=== PATIENT | female | born 1980 | race Caucasian/White ===

== ENCOUNTER 2017-01-23 14:10 | Emergency (ER) | payer SELFPAY ==
[~2017-01-23] VITALS: Ht 154.9 cm; Wt 59.0 kg
[2017-01-23 17:29] VITALS: BP 0/0
== END 2017-01-23 17:33 | disposition left against medical advice (07) ==
LOC: ER 15:44
DX: Z00.8 Encounter for other general examination (principal)
CPT/HCPCS: 99281

== ENCOUNTER 2017-03-20 17:37 | Emergency (ER) | payer MEDICAID ==
[~2017-03-20] VITALS: Ht 160 cm; Wt 58.0 kg
[2017-03-20] MEDS ORDERED: MAGNESIUM/ALUMINUM HYDROXIDE/SIMETHICONE 30ML UDC PO ONE (20:00)
[2017-03-20] MEDS ORDERED: FAMOTIDINE 20MG TABLET PO ONE (20:00)
[2017-03-20 20:15] LABS: BASOPHILS % 0.9 % (0.0-2.0); EOSINOPHILS % 0.8 % (0.0-5.0); HEMATOCRIT. 33.2 % (36.0-48.0); MEAN CORPUSCULAR HEMOGLOBIN 28.7 pg (28.0-32.0); MEAN CORPUSCULAR VOLUME 86.4 fL (81.0-99.0); MEAN PLATELET VOLUME 8.4 fl (7.4-10.4); MONOCYTES % 6.2 % (2.0-8.0); NEUTROPHILS % 74.1 % (40.0-76.0); PLATELET 239 x1000/uL (130-400); RED BLOOD CELL COUNT 3.85 mill/uL (4.2-5.4); RED CELL DISTRIBUTION WIDTH 14.6 % (11.6-14.6)
[2017-03-20 20:16] LABS: CHLORIDE 104 mEq/L (98-107)
[2017-03-20 20:18] LABS: PARTIAL THROMBOPLASTIN TIME 29.1 sec (24.0-34.0)
[2017-03-20 20:22] LABS: CARBON DIOXIDE 29 mEq/L (21-32)
[2017-03-20 20:27] LABS: TROPONIN I < 0.02 ng/mL (0.00-0.04)
[2017-03-20 20:28] VITALS: BP 134/87
[2017-03-20 20:31] LABS: HCG SCREEN NEGATIVE
== END 2017-03-20 21:47 | disposition home or self-care (01) ==
LOC: ER 18:02
DX: K29.20 Alcoholic gastritis without bleeding (principal); R07.89 Other chest pain; F17.200 Nicotine dependence, unspecified, uncomplicated; R56.9 Unspecified convulsions
CPT/HCPCS: 36415; 71010; 80053; 83690; 84443; 84484; 84703; 85025; 85610; 85730; 93005; 99285; 99406; Z7610